=== PATIENT | female | born 1960 | race Caucasian/White ===

== ENCOUNTER 2022-09-04 06:55 | Day surgery (SDC) | payer SELFPAY ==
[2022-08-31 09:51] VITALS: BMI 28.6
[2022-09-04] MEDS ORDERED: PROPOFOL 20 ML ONE ×2 (09:21→09:55)
[2022-09-04] MEDS ORDERED: MIDAZOLAM HCL 2 MG/2 ML SINGLE DOSE VIAL ONE (09:23)
[2022-09-04] MEDS ORDERED: ceFAZolin SODIUM 1 GM VIAL ONE (09:45)
[2022-09-04] MEDS ORDERED: DEXAMETHASONE SOD PHOSPHATE 4 MG/1 ML VIAL ONE (09:46)
[2022-09-04] MEDS ORDERED: ONDANSETRON 4 MG/2 ML VIAL ONE ×2 (09:46→13:21)
[2022-09-04] MEDS ORDERED: SEVOFLURANE 250 ML BTL ONE (11:21)
[2022-09-04] MEDS ORDERED: ONDANSETRON 4 MG/2 ML VIAL IVPUSH PRN (14:01)
[2022-09-04] MEDS ORDERED: oxyCODONE HCL 5 MG TABLET PO PRN (14:01)
[2022-09-04] MEDS ORDERED: LACTATED RINGERS SOLUTION 1,000 ML IV SCH (14:15)
[2022-09-04] MEDS ORDERED: FENTANYL CITRATE/PF 50 MCG/ML VIAL ONE (14:15)
[2022-09-04 14:57] VITALS: RESP 20
[2022-09-04] MEDS ORDERED: oxyCODONE HCL 10 MG SUSTAINED ACTING TABLET ONE (15:00)
[2022-09-04 15:28] VITALS: BP 123/50; PULSE 67; TEMP 97.2
== END 2022-09-04 16:40 | disposition home or self-care (01) ==
LOC: FASU 06:55
PROVIDERS: ATTEND Plastic Surgery
PROC: 0H0V0ZZ Alteration of Bilateral Breast, Open Approach (ICD-10-PCS; 2022-09-04)
PROC: 0HPU0JZ Removal of Synthetic Substitute from Left Breast, Open Approach (ICD-10-PCS; principal; 2022-09-04 09:56)
PROC: 0HPT0JZ Removal of Synthetic Substitute from Right Breast, Open Approach (ICD-10-PCS; 2022-09-04 09:56)
DX: T85.44XA Capsular contracture of breast implant, initial encounter (principal); Y82.8 Other medical devices associated with adverse incidents; Y92.9 Unspecified place or not applicable; Z98.82 Breast implant status
CPT/HCPCS: 88304-TC; 94760